=== PATIENT | female | born 1995 | race African-American/Black ===

== ENCOUNTER 2017-08-20 13:18 | Inpatient (IN) ==
[2017-08-22] MEDS ORDERED: SALINE FLUSH 10ml SYRINGE IV PRN (16:22)
[2017-08-22] MEDS ORDERED: TERBUTALINE 1 MG/ML VIAL SQ PRN (16:22)
[2017-08-22] MEDS ORDERED: DINOPROSTONE 10 MG VAGINAL INSERT VG ONE (16:22)
[2017-08-22] MEDS ORDERED: METHYLERGONOVINE 0.2 MG/ML INJECTION IM PRN (16:24)
[2017-08-22] MEDS ORDERED: MAG-AL + SIM ORAL LIQUID 30ml PO PRN (16:24)
[2017-08-22] MEDS ORDERED: ACETAMINOPHEN 500 MG TABLET PO PRN (16:24)
[2017-08-22] MEDS ORDERED: CALCIUM CARBONATE Chewable 500mg TABLET PO PRN (16:24)
[2017-08-22] MEDS ORDERED: CARBOPROST 250 MCG/ML INJECTION IM PRN (16:24)
[2017-08-22] MEDS ORDERED: LIDOCAINE 1% (10mg/ml) 2mL INJ PF SDV ID PRN (16:24)
--- OUTSIDE RECORDS SUMMARY | 2017-08-22 16:30 | External Medical Summary | Continuity of Care Document ---
:1995 Author Organization [facility] Address [address] [place], [place] [id number] Phone Allergies, Adverse Reactions, Alerts Substance Reaction Severity Status HYDROCODONE BITARTRATE Vomiting Unknown Active Medications Medication Instructions Dosage Effective Dates Status Comments (start - stop) amoxicillin 500 mg take 1 tablet by 500 MG - Active tablet oral route every 8 hours 28 mg take 1 tablet by Not Available - Active iron-800 mcg tablet oral route every day Ventolin HFA 90 inhale 1 puff by - Active mcg/actuation inhalation route aerosol inhaler every 4 - 6 hours as needed as needed ranitidine 150 mg take 1 tablet by 150 MG - Active tablet ORAL route every day Problems Condition Effective Dates (start - stop) Clinical Status Encntr for suprvsn of normal first - preg, third trimester 37 weeks gestation of - Irregular Menses Oth related conditions, - third trimester Encntr for suprvsn of normal first - preg, third trimester 32 weeks gestation of - Maternal care for excess growth, - third trimester, unsp Abnormal glucose complicating - 34 weeks gestation of - Decreased movements, third - trimester, unsp 38 weeks gestation of - Abnormal glucose complicating - Pap Smear Screening, Cervix - Encntr for suprvsn of normal first - preg, first trimester Less than 8 weeks gestation of - Encounter for initial prescription of other contraceptives Encounter for removal of intrauterine - contraceptive device Encounter for removal of intrauterine contraceptive device Encntr for suprvsn of normal first - preg, first trimester 12 weeks gestation of - Encntr for suprvsn of normal first - preg, second trimester 20 weeks gestation of - Encntr for suprvsn of normal first - preg, second trimester 24 weeks gestation of - Encntr for suprvsn of normal first - preg, second trimester 27 weeks gestation of - Encntr for suprvsn of normal first - preg, second trimester 16 weeks gestation of - Encntr for suprvsn of normal first - preg, third trimester 34 weeks gestation of - Encntr for suprvsn of normal first - preg, third trimester 30 weeks gestation of - Encntr for suprvsn of normal first - preg, third trimester Encounter for screening of - mother 36 weeks gestation of - Encntr for suprvsn of normal first - preg, third trimester 39 weeks gestation of - Encntr for suprvsn of normal first - preg, third trimester 35 weeks gestation of - Encounter for screening of - mother 20 weeks gestation of - Active Depression Active Procedures Procedure Date OB Visit No Charge Results Test Name Date and Time Measure Units Reference Range Abnormal Flag Comments Unknown Advance Directives Directive Yes / No Effective Date File Name Unknown Encounters Encounter Practice Location Reason(s) Diagnoses Date Provider Care Team Description For Visit Members Associates Louie Weston for Vazquez Referring In Womens suprvsn of normal 7-201 Isa. Provider: Health [place], first preg, third 7 700 Max [address] [email or web address] weeks Medical [place], 1522, gestation of Center 700 [place], , [facility] Medical [place], 120, [place] [id number], [place], [place], [place] Louie MULLER, tel:[phone] [place], , [place]. [id number]. tel: tel: [phone] Carlita [place] Sep-2 Durga In Womens 5-201 Max. 700 Health [place], 7 Medical PO Box Center 1522, [place], 120, [place], [place], [id number], [place], [place] [id number] tel: , [place]. tel: [phone] Carlita [place] Decreased Sep-2 Durga Referring In Womens movements, third 1-201 [place]. 700 Provider: Health [place], trimester, [email or web address] 7 [facility] Box weeks gestation Center Dur[place] R, 1522, of [place], 120, Medical [facility] , [place], [facility] 120, [place] [id number] Louie, tel: , [place]. [place] tel: [phone]. [id number] tel:[phone] Carlita [place] Encntr for Sep-1 Durga Referring In Womens suprvsn of normal 3-201 [place]. 700 Provider: Health [place], first preg, third 7 [facility] Box weeks Center Durga R, 1522, gestation of [place], 120, Medical [facility] [id number], [place], [place], [place] [id number] Louie, tel: , [place]. [place], tel: [phone]. [id number] tel:[phone] Carlita [place] Encntr for Sep-0 Durga Referring In Womens suprvsn of normal 8-201 [place]. 700 Provider: Health [place], first preg, third 7 [facility] Box trimesterEncounte Center Durga R, 1522, r for [place], screening of 120, Medical [place], [email or web address] weeks [facility] [id number], gestation of [place], [facility] 120, [place] [id number] Louie, tel: , [place] tel:[phone]. [id number] tel:[phone] Carlita [place] Encntr for Aug-3 Durga Referring In Womens suprvsn of normal 0-201 Max. 700 Provider: Yvonne BAEZ, first preg, third 7 Medical Max PO Box [email or web address] weeks Center [place] R, 1522, gestation of [place], 120, Medical Lou[facility] [id number], [place], [place], [place] [id number] Louie, tel: , [place]. [place], tel: [phone]. [id number] tel:[phone] Carlita [place] Encntr for Aug-2 Durga Referring In Womens suprvsn of normal 4-201 Max. 700 Provider: Yvonne BAEZ, first preg, third 7 Medical Max PO Box weeks Center Durga R, 1522, gestation of [place], 120, Medical Lou[facility] [id number], [place], [place], [place] [id number] Louie, tel: , [place]. [place] tel: [phone]. [id number] tel:[phone] Carlita [place] Maternal care for Aug-2 Durga Referring In Womens Ultrasound excess 4-201 Max. 700 Provider: Yvonne BAEZ, growth, third 7 Medical Max PO Box trimester, Center Durga R, 1522, [email or web address] [place], glucose 120, Medical [place], complicating [facility] [id number], [email or web address] weeks [place], [place], [place] gestation of [id number] Louie, tel: , [place]. [place], tel: [phone]. [id number] tel:[phone] Carlita [place] Ot Aug-0 Durga Referring In Womens related 8-201 Mxa. 700 Provider: Yvonne BAEZ, conditions, third 7 Medical Max PO Box trimesterEncntr Center Durga R, 1522, for suprvsn of [place], normal first 120, Medical [place], preg, third [facility] [id number], [email or web address] weeks [place], [place], [place] gestation of [id number] [place], tel: , [place]. [place] tel: [phone]. [id number] tel:[phone] Associates Louie Encntr for Jhonatan-2 Durga Referring In Womens suprvsn of normal 6-201 Max. 700 Provider: Health NESTOR, first preg, third 7 Medical Max PO Box weeks Center Durga R, 1522, gestation of [place], 120, Medical [place], [facility] [id number], [place], [place], [place] [id number] Louie, tel: , [place]. [place], tel: [phone]. [id number] tel:[phone] Associates Louie Abnormal glucose Jhonatan-0 Durga Referring In Womens complicating 7-201 Max. 700 Provider: Health [place], 7 Medical Max PO Box Center Durga R, 1522, [place], 120, Medical Louie [facility] [id number], [place], [place] 120, [place] [id number] Louie, tel: , [place]. [place], tel: [phone]. [id number] tel:[phone] Associates [facility]ie Encntr for Jhonatan-0 Durga Referring In Womens suprvsn of normal 3-201 Max. 700 Provider: Health NESTOR, first preg, 7 Medical Max PO Box second Center Durga R, 1522, [email or web address] weeks [place], gestation of 120, Medical [place], [facility] , [place], [place] 120, [place] [id number] [place], tel: , [place]. [place], tel: [phone]. [id number] tel:[phone] Associates [facility]ie Encntr for Donte-1 Durga In Womens suprvsn of normal 5-201 Max. 700 Health [place], first preg, 7 Medical PO Box second Center 1522, weeks [place], gestation of 120, [place], [place], [id number], [place], [place] [id number] tel: , [place]. tel: [phone] Associates [facility] Encntr for May-1 Durga In Womens suprvsn of normal 8-201 [place]. 700 Health [place], first preg, 7 Medical PO Box second Center 1522, [email or web address] weeks [place], gestation of 120, [place], [place], [id number], [place], [place] [id number] tel:+ , [place]. tel:[phone] Associates Louie Encounter for May-1 Dur[place] In Womens Ultrasound 8-201 [place]. 700 Health [place], screening of 7 Medical PO Box [email or web address] weeks Center 1522, gestation of [place], 120, [place], [place], [id number], [place], [place] [id number] tel:+ , [place]. tel: [phone] Associates Louie Encntr for Apr-2 Durga In Womens suprvsn of normal 0-201 [place]. 700 Health [place], first preg, 7 Medical PO Box second Center 1522, weeks [place], gestation of 120, [place], [place], , [place], [place] [id number] tel:+ , [place]. tel: [phone] Associates [facility] Encntr for Mar-2 Dur[place] In Womens suprvsn of normal 4-201 [place]. 700 Health [place], first preg, first 7 Medical PO Box [email or web address] weeks Center 1522, gestation of [place], 120, [place], [place], [id number], [place], [place] [id number] tel:+ , [place]. tel: [phone] Carlita [place] Pap Smear Mar-0 Durga In Womens Screening, 1-201 [place]. 700 Health [place], CervixEncntr for 7 Medical PO Box suprvsn of normal Center 1522, first preg, first [place], trimesterLess 120, [place], than 8 weeks [place], , gestation of [place], [place] [id number] tel:+ , [place]. tel: [phone] Carlita [place] Irregular Menses Feb-2 [place] Referring In Womens 2-201 [facility]. Provider: Health [place], 7 700 Antony PO Box Medical Brendan D, 1522, Center [address] [place], 120, [address], [id number], [place], [place], [place], [address]. tel: [phone] tel: , [place]. [id number] tel: [phone] Associates Louie Encounter for Robyn Referring In Womens initial 2-201 Shani. Provider: Health [place], prescription of 6 700 Antony PO Box other Medical Brendan D, 1522, contraceptivesEnc Center [address] , [address] [place], removal of 120, [address], [id number], intrauterine Louie, [place], [place], [address]. tel: deviceEncounter [phone] tel: for removal of , [place]. [id number] intrauterine tel: contraceptive [phone] device Family History Family Member Diagnosis Age At Onset Paternal Grandmother Lung Disease Paternal Grandfather Diabetes mellitus Paternal Grandmother Osteoporosis Paternal Grandmother Hypertension Paternal Grandfather Hypertension Brother Diabetes mellitus Paternal Grandfather Lung Disease Maternal Grandmother Thyroid Disorder Paternal Grandmother Diabetes mellitus Sister Thyroid Disorder Immunizations Vaccine Date Status Comments Influenza, injectable, completed Source: New Immunization Record quadrivalent, preservative free, 3 yrs or older Tdap completed Source: New Immunization Record Payers Payer name Insurance type Covered democrat ID Authorization(s) [facility] [id number] Medicaid [employer] CI [id number] [facility] [id number] [facility] [id number] Medicaid [place] BL [id number] [facility] [id number] Medicaid Social History Type Description Quantity Date Captured Alcohol Use Details No Caffeine Use Details Unknown Tobacco Use Status Smoking Status Former smoker Vital Signs Date / Height Weight BMI Pulse Blood Temperature Respiratory Body Head BMI Time: Rate Pressure Rate Surface Circumference percentile Area 250.30 39.7 137/84 -2017 lbs 9 mm[Hg] 2:07 kg/m PM eter (2) Chief Complaint And Reason For Visit Unknown Chief Complaint And Reason For Visit Reason For Referral Reason For Referral Unknown Plan Of Care Date Type Action Status Goal Lifestyle education regarding completed diet Goal Lifestyle education regarding completed diet Future Order: Radiology Order Ultrasound OB Follow-up ([id number]) Ordered Future Order: Radiology Order Complete OB Ultrasound > 14 Ordered Weeks ([id number]) Date Type Problem Goal Intervention Status Start Date Unknown. History Of Present Illness Encounter Date Complaint History Of Present Illness This patient has no known history of present illness Functional Status Encounter Date Functional Assessment Cognitive Assessment Unknown Medications Administered Medication Instructions Dosage Effective Dates (start - stop) Status Comments Drug Treatment Unknown Instructions Date Instruction Additional Information HIV and other routine tests risk factors identified by history anticipated course of care nutrition and weight gain counseling, special diet toxoplasmosis precautions (cats / raw meat) sexual activity exercise indications for ultrasound influenza vaccine environmental / work hazards travel tobacco (ask, advise, assess, assist and arrange) use of any medications (including supplements, vitamins, herbs, OTC drugs) smoking counseling domestic violence seat belt use childbirth classes / hospital facilities hospital registration genetic testing new ob handbook Lifestyle education regarding diet Related to Body mass index 31.0-31.9 Giving encouragement to exercise Related to Body mass index 31.0-31.9 Giving encouragement to exercise Related to Body mass index 31.0-31.9 Lifestyle education regarding diet Related to Body mass index 31.0-31.9
[2017-08-22 16:49] VITALS: BMI 39.6
--- NOTE | 2017-08-22 17:27 | Labor and Delivery Note ---
- Labor and Delivery Labor and Delivery: Cervidil placed without difficult. FHTs category 1. Cervix cl/thick/ballotable.
[2017-08-22] MEDS: LR 1,000 ML IV PRN (23:00)
[2017-08-23] MEDS ORDERED: OXYTOCIN DRIP 30 UNIT/500 ML ML IV PRN (05:00)
[2017-08-23] MEDS: D5LR 1,000 ML IV PRN ×2 (06:02→15:31)
--- NOTE | 2017-08-23 08:00 | Anesthesia Preoperative Report ---
Anesthesia Epidural/Spinal Rec - Date and Time Date: 08/23/17 Preoperative Diagnosis: Procedure: Labor Epidural Plan: Epidural - Vital Signs Vital Signs: Temperature 98.1 F 08/22/17 17:00 Pulse Rate 101 H 08/22/17 17:00 Respiratory Rate 16 08/22/17 17:00 Blood Pressure 126/77 08/22/17 17:00 /Para: P:0 - Medictaions & Allergies Inpatient Medications: Current Medications Acetaminophen (Tylenol) 500 - 1,000 mg PO Q4H PRN PRN Reason: Pain Al Hydroxide/Mg Hydroxide (Maalox Plus) 30 ml PO Q3H PRN PRN Reason: Indigestion Calcium Carbonate (Tums) 500 - 1,000 mg PO Q2H PRN PRN Reason: Indigestion Carboprost Tromethamine (Hemabate) 250 mcg IM O PRN PRN Reason: .Downtime Diphenhydramine HCl (Benadryl) 50 mg PO HS PRN PRN Reason: Sleep Lactated Ringer's (Lactated Ringers) 1,000 mls @ 999 mls/hr IV .Q1H1M PRN Last Admin: 08/22/17 23:00 Dose: 999 mls/hr Dextrose/Lactated Ringer's (Dextrose 5%-Lactated Ringers) 1,000 mls @ 125 mls/ hr IV .Q8H PRN PRN Reason: Labor Last Admin: 08/23/17 06:02 Dose: 125 mls/hr Oxytocin (Pitocin Drip) 30 unit in 500 mls @ 2 mls/hr IV .Q24H PRN; Protocol PRN Reason: Induction/Augmentation Last Admin: 08/23/17 06:01 Dose: 2 mls/hr Lidocaine HCl (Xylocaine-Mpf 1% Vial) 0.2 mg ID O PRN PRN Reason: IV Start Methylergonovine Maleate (Methergine) 0.2 mg IM O PRN Misoprostol (Cytotec) 800 mcg OR ONCE PRN Sodium Chloride (Iv Flush) 10 - 80 ml IV PRN PRN PRN Reason: Flushing Terbutaline Sulfate (Brethine) 0.25 mg SQ PRN PRN Allergies/Adverse Reactions: Allergies Allergy/AdvReac Type Severity Reaction Status Date / Time hydrocodone [From [place]] Allergy Verified 07/26/17 11:48 - Home Medications Home Medications: Home Medications Medication Instructions Recorded Confirmed Type No Known Medications #0 05/22/11 History Acetaminophen [Tylenol] 1,000 mg PO PRN PRN 07/26/17 07/26/17 History BuPROPion SR [Wellbutrin Sr] 150 mg PO DAILY 07/26/17 07/26/17 History DiphenhydrAMINE [Benadryl] 1 cap PO PRN PRN 07/26/17 07/26/17 History Tablet 1 tab PO DAILY 07/26/17 07/26/17 History - Medical History Respiratory: Reports: Asthma Other History: Reports: Now - Surgical History Anesthesia Reactions: None Hx Family Anesthesia Reaction: No History of Motion Sickness: No - Social History Second Hand Exposure: No Alcohol Intake Frequency: does not drink - Pertinent Findings Lab Data: CBC and BMP 08/22/17 16:47 EKG Rhythm: Normal Sinus Rhythm - Physical Exam Respiratory Exam: lungs clear Cardiovascular Exam: regular rate and rhythm - Airway Assessment Mallampati Score: II TMD: 3 Fingerbreadths Neck Extension: good Overall Assessment: may be difficult intubation - ASA ASA Score: 2 - Discussion Discussion: Discussed risks/options/alternatives of anesthesia and questions answered. Patient consents. Nursing pain assessment noted. Anesthesia Discussion: spouse Attestation Statement: Prior to the delivery of any anesthetic medication, I examined the patient, developed the plan, obtained the patient's consent and discussed the risk and benefits of the procedure with the patient/guardian.
[2017-08-23] MEDS: LR 1,000 ML IV PRN ×2 (11:31→17:25)
[2017-08-23] MEDS ORDERED: DiphenhydrAMINE 50 MG/ML INJECTION IVP PRN (11:48)
[2017-08-23] MEDS ORDERED: ROPIVACAINE 1% 10MG/ML INJ 200 MG, SUFentanil 50 MCG in NS 100 ML EPI PRN (11:48)
[2017-08-23] MEDS ORDERED: ONDANSETRON 4 MG/2 ML INJECTION IVP PRN (11:48)
[2017-08-23] MEDS ORDERED: NALOXONE 0.4 MG/ML INJECTION IVP PRN (11:48)
[2017-08-23] MEDS ORDERED: CITRIC ACID/SODIUM CITRATE 30ml PO ONE (15:52)
[2017-08-23] MEDS ORDERED: FAMOTIDINE PB 20 MG/50 ML BAG IV ONE (15:52)
[2017-08-23] MEDS ORDERED: CEFAZOLIN PREMIX (MC ONLY) 2 GM/50 ML BAG IV ONE (15:52)
[2017-08-23] MEDS ORDERED: AZITHROMYCIN IV 500 MG in NS 250ml 250 ML IV ONE (16:19)
[2017-08-23] MEDS ORDERED: ONDANSETRON 4 MG/2 ML INJECTION ONE (16:42)
[2017-08-23] MEDS ORDERED: OXYTOCIN BOLUS BAG 30 UNIT/500 ML ML IV SCH (17:15)
[2017-08-23] MEDS ORDERED: CALCIUM CARBONATE Chewable 500mg TABLET PO PRN (18:06)
[2017-08-23] MEDS ORDERED: METOCLOPRAMIDE 10mg/2ml INJECTION IVP PRN (18:06)
[2017-08-23] MEDS ORDERED: ACETAMINOPHEN 500 MG TABLET PO PRN (18:06)
[2017-08-23] MEDS ORDERED: HYDROCORTISONE 2.5% CREAM 30gm RECTALLY PRN (18:06)
[2017-08-23] MEDS ORDERED: SALINE FLUSH 10ml SYRINGE IV PRN (18:06)
[2017-08-23] MEDS ORDERED: DiphenhydrAMINE 25 MG CAPSULE PO PRN (18:06)
[2017-08-23] MEDS ORDERED: SIMETHICONE 80 MG CHEWABLE TABLET PO PRN (18:06)
[2017-08-23] MEDS ORDERED: HYDROMORPHONE PCA 30mg/30ml VIAL IV PRN (18:06)
[2017-08-23] MEDS ORDERED: OXYTOCIN DRIP 30 UNIT/500 ML ML IV SCH (18:06)
--- NOTE | 2017-08-23 18:16 | Anesthesia Preoperative Report ---
Anesthesia Preoperative Record - Date and Time Date: 08/23/17 Preoperative Diagnosis: Proposed Procedure: , failure to progress NPO Since Date: 08/23/17 NPO Since Time: 07:00 Allergies/Adverse Reactions: Allergies Allergy/AdvReac Type Severity Reaction Status Date / Time hydrocodone [From [place]] Allergy Verified 07/26/17 11:48 - Vital Signs Vital Signs: Temperature 98.1 F 08/22/17 17:00 Pulse Rate 101 H 08/22/17 17:00 Respiratory Rate 16 08/22/17 17:00 Blood Pressure 126/77 08/22/17 17:00 Height and Weight: Height 5 ft 7 in Weight 115 kg Body Mass Index 39.6 - Medications Inpatient Medications: Current Medications Acetaminophen (Tylenol) 500 - 1,000 mg PO Q4H PRN PRN Reason: Pain Calcium Carbonate (Tums) 500 mg PO O PRN Carboprost Tromethamine (Hemabate) 250 mcg IM O PRN PRN Reason: .Downtime Diphenhydramine HCl (Benadryl) 25 - 50 mg PO Q6H PRN PRN Reason: Itching Docusate Calcium (Surfak) 240 mg PO DAILY TENZIN Hydrocortisone (Anusol-Hc 2.5% Cream) 1 applic RECTALLY PRN PRN PRN Reason: Hemorrhoids Hydromorphone HCl (Dilaudid Nurse Practical) 0 mg IV PRN PRN PRN Reason: Pain Dextrose/Lactated Ringer's (Dextrose 5%-Lactated Ringers) 1,000 mls @ 100 mls/ hr IV .Q10H TENZIN Oxytocin (Pitocin Drip) 30 unit in 500 mls @ 50 mls/hr IV .Q10H TENZIN Stop: 08/24/17 04:05 Ibuprofen (Motrin) 800 mg PO Q8H PRN PRN Reason: Pain Magnesium Hydroxide (Mom) 30 ml PO HS PRN PRN Reason: Constipation Methylergonovine Maleate (Methergine) 0.2 mg IM O PRN Metoclopramide HCl (Reglan) 10 mg IVP Q6H PRN PRN Reason: Nausea Ondansetron HCl (Zofran) 4 mg IVP Q6H PRN PRN Reason: Nausea &/or vomiting Oxycodone/Acetaminophen (Percocet 5/325) 1 - 2 tab PO Q4H PRN PRN Reason: Pain Simethicone (Mylicon) 80 mg PO PCHS TENZIN Simethicone (Mylicon) 80 mg PO PCHS PRN PRN Reason: Gas Sodium Chloride (Iv Flush) 10 - 80 ml IV PRN PRN PRN Reason: Flushing Home Medications: Home Medications Medication Instructions Recorded Confirmed Type No Known Medications #0 05/22/11 History Acetaminophen [Tylenol] 1,000 mg PO PRN PRN 07/26/17 07/26/17 History BuPROPion SR [Wellbutrin Sr] 150 mg PO DAILY 07/26/17 07/26/17 History DiphenhydrAMINE [Benadryl] 1 cap PO PRN PRN 07/26/17 07/26/17 History Tablet 1 tab PO DAILY 07/26/17 07/26/17 History Is Patient on Beta Greg?: No - Medical History Respiratory: DENIES: Asthma, Sleep Apnea Cardiovascular: DENIES: Hypertension Gastrointestional: DENIES: Gastroesophageal Reflux Disease Renal/Endocrine: DENIES: Diabetes Mellitus Type 2 Other History: DENIES: Anesthesia Reactions - Surgical History Reproductive Surgery/Treatment: DENIES: Breast Augmentation/Reduction, Section Anesthesia Reactions: None Hx Family Anesthesia Reaction: No History of Motion Sickness: No - Social History Second Hand Exposure: No Alcohol Intake Frequency: does not drink - Pertinent Findings Laboratory: CBC and BMP 08/22/17 16:47 - Physical Exam Respiratory Exam: Present: lungs clear Cardiovascular Exam: Present: regular rate and rhythm - Airway Assessment Mallampati Score: II TMD: 3 Fingerbreadths Neck Extension: good Overall Assessment: may be difficult intubation - ASA ASA Score: 2 - Plan Anesthesia: Neuroaxial (epidural- currently in and functioning well. will dose accordingly) - Discussion Discussion: Discussed risks/options/alternatives of anesthesia and questions answered. Patient consents. Nursing pain assessment noted. Present for Discussion: spouse Attestation Statement: Prior to the delivery of any anesthetic medication, I examined the patient, developed the plan, obtained the patient's consent and discussed the risk and benefits of the procedure with the patient/guardian. - Additional Information Seen by Anesthesia: Yes
[2017-08-23] MEDS: IBUPROFEN 800 MG TABLET PO PRN (19:07)
[2017-08-23] MEDS: D5LR 1,000 ML IV SCH (19:50)
[2017-08-23] MEDS: SIMETHICONE 80 MG CHEWABLE TABLET PO SCH (19:54)
[2017-08-24] MEDS: SIMETHICONE 80 MG CHEWABLE TABLET PO SCH ×3 (02:48→15:45)
[2017-08-24] MEDS: SERTRALINE 50 MG TABLET PO SCH ×2 (03:44→10:40)
[2017-08-24] MEDS: D5LR 1,000 ML IV SCH ×2 (06:45→15:45)
--- NOTE | 2017-08-24 08:48 | OB/GYN Progress Note ---
OB-PP Progress Note - General PPD1 POD:: POD1 - Subjective Date: 08/24/17 Lochia: Minimal Pain: contolled Voiding: xie still in place Nausea or Vomiting Present: No - Objective Vital Signs: Last Vital Signs Temp 97.7 F 08/24/17 06:15 Pulse 85 08/24/17 06:15 Resp 16 08/24/17 06:15 BP 132/77 08/24/17 06:15 Pulse Ox 100 08/24/17 06:15 Urine Output: good General: alert and oriented Cardiovascular: regular rate,rhythm Respiratory: non-labored Abdomen: fundus firm Incision: normal, dry Extremities: non-tender Laboratory: Laboratory Results - last 24 hr 08/23/17 23:23 WBC 16.6 H D RBC 3.81 L Hgb 10.5 L D Hct 31.9 L D MCV 83.7 MCH 27.6 MCHC 32.9 RDW Std Deviation 40.0 Plt Count 223 MPV 10.7 - Assessment Assessment: SP, Primary C/S - Plan Plan: routine care (DC, Xie, encourage ambulation. Nancy LAGUNAS POD 2-3)
[2017-08-24] MEDS ORDERED: DOCUSATE CALCIUM 240 MG CAPSULE PO SCH (09:00)
--- NOTE | 2017-08-24 09:19 | Operative Note ---
DATE OF OPERATION: 08/23/2017 PREOPERATIVE DIAGNOSIS 1. 21-year-old white female G1, P0 at 40.3 weeks gestational age. 2. Induction of labor for postdates gestation. 3. Cervidil cervical ripening. 4. Artificial rupture of membranes. 5. Intrauterine pressure monitor. 6. Epidural anesthesia. 7. Arrest of dilation at 1 cm. 8. Arrest of descent at high station. POSTOPERATIVE DIAGNOSIS 1. Nuchal cord x1. 2. Male , 4312 grams (Dakota Kenny), 8/9 Apgars. PROCEDURE: Primary low transverse section. EBL: 1000 mL SURGEON: Max Calixto MD MAILING MACHINE HELPER: Rusty Espana DO COMPLICATIONS: None BRIEF HISTORY This is a patient of mine who was induced for postdates. Pitocin reached a maximum of 26 milliunits a minute. Cervix was closed initially and we did Cervidil cervical ripening and then the following day when Pitocin was at 20, she dilated to fingertip and I was able to break her water at 8:30 a.m. and she progressed to 1 cm but never beyond that. The baby's station remained high throughout the labor. I placed an IUPM and documented adequate contractions for hours. Finally about 4:00 p.m. we decided to call a for failed induction. DESCRIPTION OF PROCEDURE After adequate epidural anesthesia, the patient was prepped and draped in the left lateral decubitus position. A Pfannenstiel skin incision was made with a sharp knife and carried down to the fascia, which was incised transversely with the Roper scissors. The rectus fascia was bluntly and sharply dissected off the rectus muscle. The rectus muscle was divided, and the peritoneum was isolated, elevated, entered with the Metzenbaum scissors and extended cephalad and caudad. The bladder blade was then inserted. Then using a sharp knife, a transverse incision was made in the lower uterine segment above the bladder. This was extended with my fingers. Male infant was delivered from the vertex position without difficulty. There was a nuchal cord x1 that was reduced. The infant was bulb suctioned after delivery of the head and then again after delivery of the body. Cord was doubly clamped and cut and the infant was taken to the isolette where it was received by Dr. Pedro of Pediatrics. The placenta was expressed manually and was intact. The uterus was then allowed to fall upon the external abdominal wall. The endometrial cavity was cleansed using moist lap sponges. The uterus was closed using 0-Monocryl in a running locking fashion. [id number] suture of 2-0 chromic on the right edge completed hemostasis. Hemostasis was confirmed. The posterior cul-de-sac was cleansed of old blood clots and the tubes and ovaries were examined and found to be normal in size, shape and appearance. After hemostasis was again confirmed, the uterus was then carefully returned to the abdominal cavity. The abdomen was then closed in layers. The peritoneum was closed using 2-0 Vicryl in running nonlocking fashion. The fascia was closed using 0-Vicryl in a running nonlocking fashion bilaterally from the lateral aspects medially. 3-0 Vicryl in a running nonlocking fashion brought Juan's tissue together. Hemostasis was achieved with the subcutaneous tissue and then the skin was closed using wide isadora in a serial fashion. Three horizontal mattress sutures of 3-0 Monocryl were placed to keep the skin edges everted. The patient tolerated the procedure well and went to the recovery room in stable condition. Pad, sponge and needle counts were correct and urine postop was clear and free flowing. MTDD
[2017-08-24] MEDS: IBUPROFEN 800 MG TABLET PO PRN ×2 (10:35→18:20)
[2017-08-24] MEDS: Oxycodone/Acetaminophen 5/325 1 TAB PO PRN ×2 (10:35→18:21)
--- NOTE | 2017-08-24 15:29 | Anesthesia Postoperative Note ---
- Date and Time Date: 08/24/17 Time: 15:28 - Status Patient Participated in Evaluation: Patient Participated in Person Vital Signs: Temperature 98 F 08/24/17 13:08 Pulse Rate 80 08/24/17 13:08 Respiratory Rate 20 08/24/17 13:08 Blood Pressure 138/93 H 08/24/17 13:08 Pulse Oximetry 98 08/24/17 13:08 Respiratory Function: Airway Patent Cardiovascular Function: Regular Pulse EKG: Sinus Rhythm Mental Status: Alert and Oriented Pain Intensity: 0 Hydration: Taking PO Fluids Complications During Recover: None Apparent - Follow-Up Instructions Instructions: Per Surgeon
[2017-08-24 16:33] VITALS: RESP 16
[2017-08-25] MEDS: Oxycodone/Acetaminophen 5/325 1 TAB PO PRN ×2 (00:40→07:34)
[2017-08-25] MEDS: SIMETHICONE 80 MG CHEWABLE TABLET PO SCH ×3 (00:40→08:44)
[2017-08-25 04:35] VITALS: O2SAT 98
[2017-08-25] MEDS: IBUPROFEN 800 MG TABLET PO PRN (07:33)
[2017-08-25] MEDS: SERTRALINE 50 MG TABLET PO SCH (07:34)
[2017-08-25 08:28] VITALS: BP 136/94; PULSE 96; TEMP 98
--- NOTE | 2017-08-25 10:35 | OB/GYN Progress Note ---
OB-PP Progress Note - General PPD2 Maternal Group B Strep: Negative Maternal blood type: O+ Maternal Rubella Status: Immune - Subjective Date: 08/25/17 Lochia: Minimal Pain: contolled Voiding: voiding - Objective Vital Signs: Last Vital Signs Temp 98 F 08/25/17 08:26 Pulse 96 08/25/17 08:26 Resp 16 08/25/17 08:26 BP 136/94 H 08/25/17 08:26 Pulse Ox 98 08/25/17 08:26 Urine Output: good General: alert and oriented Abdomen: fundus firm, non-tender Incision: normal, no erythema, intact Extremities: non-tender - Assessment Assessment: Primary C/S - Plan Plan: routine care, discharge home, continue PNV
--- NOTE | 2017-08-25 10:40 | Discharge Instructions ---
Discharge Plan - Med Rec/Dispo Prescriptions: New Oxycodone/Acetaminophen 5/325 [Percocet 5/325] 1 - 2 tab PO Q4H PRN #40 tab PRN Reason: Pain Sertraline [Zoloft] 50 mg PO DAILY #30 tab Ibuprofen [Motrin] 800 mg PO Q8H PRN #30 tab PRN Reason: Pain Continue Tablet 1 tab PO DAILY BuPROPion SR [Wellbutrin Sr] 150 mg PO DAILY DiphenhydrAMINE [Benadryl] 1 cap PO PRN PRN PRN Reason: Sleep Acetaminophen [Tylenol] 1,000 mg PO PRN PRN PRN Reason: Pain Discontinued No Known Medications #0 Discharge Instructions/Outpatient Orders: Final Provider Discharge Instructions Time Frame: 08/25/17, Location: Determined By Patient - Disposition 01 Discharged Home, Self-Care
== END 2017-08-25 12:25 | disposition home or self-care (01) | DRG 766 ==
LOC: MC 08-22 16:20
PROVIDERS: ADMIT Obstetrics & Gynecology; ATTEND Obstetrics & Gynecology